=== PATIENT | female | born 1990 | race Caucasian/White ===

== ENCOUNTER 2017-03-27 16:34 | Emergency (ER) | payer OTHER ==
[2017-03-27 16:46] VITALS: BP 120/75
[2017-03-27] MEDS ORDERED: DOXYCYCLINE 100 MG TABLET PO STA (17:08)
--- NOTE | 2017-03-27 17:11 | ED Physician Documentation ---
PD HPI LOWER EXT INJURY - Stated complaint Stated Complaint: RT GRT TOE LAC - Chief complaint Chief Complaint: Wound - History obtained from History obtained from: Patient - History of Present Illness PD HPI LOW EXT INJURY LOCATION: Other (26-year-old woman, active duty in the [employer], up-to-date on tetanus. She was in [place] a week ago and cut the top of her right great toe [place] the [place], she is not sure on exactly what. He developed an infection with a pustule which she popped and some localized redness but no systemic symptoms.) Review of Systems Constitutional: reports: Reviewed and negative Cardiac: reports: Reviewed and negative Respiratory: reports: Reviewed and negative PD PAST MEDICAL HISTORY - Past Medical History Past Medical History: No - Past Surgical History Past Surgical History: Yes - Present Medications Home Medications: Ambulatory Orders Medication Instructions Recorded Confirmed Doxycycline Hyclate 100 mg PO BID #14 tablet 03/27/17 - Allergies Allergies/Adverse Reactions: Allergies Allergy/AdvReac Type Severity Reaction Status Date / Time No Known Drug Allergies Allergy Verified 03/27/17 16:46 - Social History Does the pt smoke?: No Smoking Status: Never smoker Does the pt drink ETOH?: No Does the pt have substance abuse?: No - Immunizations Immunizations are current?: Yes - POLST Patient has POLST: No PD ED PE NORMAL - Vitals Vital signs reviewed: Yes - General General: Alert and oriented X 3, No acute distress - Extremities Extremities: Other (On the top of the right great toe, just distal to the interphalangeal joint, medial, there is a completely drained pustule, less than 1 cm around with very mild surrounding cellulitis but no limited range of motion.) - Neuro Neuro: Alert and oriented X 3, Normal speech - Psych Psych: Normal mood, Normal affect Results - Vitals Vitals: Vital Signs - 24 hr 03/27/17 16:44 Temperature 36.8 C Heart Rate 75 Respiratory 17 Rate Blood Pressure 120/75 O2 Saturation 100 Oxygen O2 Source Room air Departure - Departure Disposition: 01 Home, Self Care Clinical Impression: Cellulitis of toe of right foot Condition: Good Record reviewed to determine appropriate education?: Yes Instructions: Cellulitis Dc Prescriptions: Doxycycline Hyclate 100 mg PO BID #14 tablet Comments: Call your doctor to arrange a follow-up appointment, make the next available appointment. In the interim, return anytime if worse or if new symptoms develop. We are performing a wound culture, the results should be done in 48-72 hours. If antibiotic change is necessary we will call you. Return if worse in the meantime, especially if he develop increased pain, fevers, cannot keep down the medication. Otherwise follow-up with your physician in approximately 2-3 days.
[2017-03-27] MEDS ORDERED: DOXYCYCLINE 100 MG TABLET PO ONE (17:13)
== END 2017-03-27 17:19 | disposition home or self-care (01) ==
LOC: ED 16:34
DX: L03.032 Cellulitis of left toe (principal)
CPT/HCPCS: 87070; 87077; 87181; 87205; 99283; A9270